=== PATIENT | male | born 1990 | race Two or more races ===

== ENCOUNTER 2024-09-05 16:32 | Emergency (ER) | payer MEDICAID ==
[~2024-09-05] VITALS: Ht 172.7 cm; Wt 108.9 kg
[2024-09-05 18:50] VITALS: BP 141/99; TEMP 98.1; O2SAT 99
== END 2024-09-05 18:50 | disposition home or self-care (01) ==
LOC: ER 16:49
DX: R07.89 Other chest pain (principal)